=== PATIENT | female | born 1995 | race Caucasian/White ===

== ENCOUNTER 2021-07-15 06:34 | Emergency (ER) | payer BC, OTHER ==
[~2021-07-15] VITALS: Ht 165 cm; Wt 78.0 kg
--- NOTE | 2021-07-15 06:57 | ED Abdominal Pain ---
General Stated Complaint: 14 WKS PREG,CRAMPING,DIZZY,LOW BLOOD PRESSURE Source of Information: Patient Exam Limitations: No Limitations History of Present Illness Date Seen by Provider: Jul 15, 2021 Time Seen by Provider: 06:37 Initial Comments 25yoF that is roughly 14 weeks by 1st trimester ultrasound coming in for lower abdominal cramping that started yesterday at 5pm. See's Dr. Valverde and has had a normal ultrasound so far. Having normal vaginal discharge with her and no bleeding. Pain is a 6/10 cramping feeling that is constant. Has nausea but no vomiting. Tried tylenol last night with little relief. Denies ever having pain like this before. Allergies and Home Medications Allergies Coded Allergies: No Known Drug Allergies (Unverified , 07/15/21) Patient Home Medication List Home Medication List Reviewed: Yes Review of Systems Review of Systems Constitutional: No chills, No fever EENTM: No Blurred Vision Respiratory: Denies Cough, Denies Shortness of Air Cardiovascular: Denies Chest Pain Gastrointestinal: Abdominal Pain; Denies Diarrhea; Nausea; Denies Vomiting Genitourinary: Denies Burning Musculoskeletal: No back pain Skin: no symptoms reported Psychiatric/Neurological: No Symptoms Reported Endocrine: No Symptoms Reported Hematologic/Lymphatic: No Symptoms Reported All Other Systems Reviewed Negative Unless Noted: Yes Past Uentubh-Kuiwwg-Jjxspt Hx Patient Social History Tobacco Use?: No Substance use?: No Past Medical History Surgeries: No Physical Exam Vital Signs Vital Signs - First Documented 07/15/21 06:45 Temp 36.8 Pulse 83 Resp 18 B/P (MAP) 115/69 (84) Pulse Ox 97 O2 Delivery Room Air Capillary Refill : Height/Weight/BMI Height: '" Weight: lbs. oz. kg; BMI Method: General Appearance: WD/WN, no apparent distress HEENT: PERRL/EOMI, normal ENT inspection, pharynx normal Neck: non-tender, full range of motion, supple, normal inspection Respiratory: chest non-tender, lungs clear, normal breath sounds, no respirator y distress, no accessory muscle use Cardiovascular: regular rate, rhythm, no edema, no murmur Gastrointestinal: normal bowel sounds, non tender, soft; No distended, No guarding, No rebound Extremities: normal range of motion, non-tender, normal inspection, no pedal edema, no calf tenderness, normal capillary refill Back: normal inspection, no CVA tenderness, no vertebral tenderness Neurologic/Psychiatric: no motor/sensory deficits, alert, normal mood/affect Skin: normal color, warm/dry Lymphatic: no adenopathy Progress/Results/Core Measures Results/Orders Lab Results Laboratory Tests Test 07/15/21 06:50 07/15/21 07:33 Range/Units Urine Color YELLOW Urine Clarity SL CLOUDY Urine pH 6.0 5-9 Urine Specific [place] 1.025 H 1.016-1.022 Urine Protein NEGATIVE NEGATIVE Urine Glucose (UA) NEGATIVE NEGATIVE Urine Ketones NEGATIVE NEGATIVE Urine Nitrite NEGATIVE NEGATIVE Urine Bilirubin NEGATIVE NEGATIVE Urine Urobilinogen 0.2 < = 1.0 MG/DL Urine Leukocyte Esterase NEGATIVE NEGATIVE Urine RBC (Auto) NEGATIVE NEGATIVE Urine RBC NONE /HPF Urine WBC RARE /HPF Urine Squamous Epithelial Cells 5-10 /HPF Urine Crystals NONE /LPF Urine Bacteria FEW H /HPF Urine Casts NONE /LPF Urine Mucus SMALL H /LPF Urine Culture Indicated NO White Blood Count 8.7 4.3-11.0 10^3/uL Red Blood Count 3.70 L 3.80-5.11 10^6/uL Hemoglobin 11.1 L 11.5-16.0 g/dL Hematocrit 32 L 35-52 % Mean Corpuscular Volume 87 80-99 fL Mean Corpuscular Hemoglobin 30 25-34 pg Mean Corpuscular Hemoglobin Concent 35 32-36 g/dL Red Cell Distribution Width 12.9 10.0-14.5 % Platelet Count 266 130-400 10^3/uL Mean Platelet Volume 9.8 9.0-12.2 fL Immature Granulocyte % (Auto) 1 % Neutrophils (%) (Auto) 65 42-75 % Lymphocytes (%) (Auto) 27 12-44 % Monocytes (%) (Auto) 5 0-12 % Eosinophils (%) (Auto) 2 0-10 % Basophils (%) (Auto) 0 0-10 % Neutrophils # (Auto) 5.6 1.8-7.8 10^3/uL Lymphocytes # (Auto) 2.3 1.0-4.0 10^3/uL Monocytes # (Auto) 0.5 0.0-1.0 10^3/uL Eosinophils # (Auto) 0.2 0.0-0.3 10^3/uL Basophils # (Auto) 0.0 0.0-0.1 10^3/uL Immature Granulocyte # (Auto) 0.0 0.0-0.1 10^3/uL Sodium Level 136 135-145 MMOL/L Potassium Level 3.4 L 3.6-5.0 MMOL/L Chloride Level 105 98-107 MMOL/L Carbon Dioxide Level 20 L 21-32 MMOL/L Anion Gap 11 5-14 MMOL/L Blood Urea Nitrogen 6 L 7-18 MG/DL Creatinine 0.65 0.60-1.30 MG/DL Estimat Glomerular Filtration Rate 113 BUN/Creatinine Ratio 9 Glucose Level 77 70-105 MG/DL Calcium Level 8.6 8.5-10.1 MG/DL Corrected Calcium 8.9 8.5-10.1 MG/DL Total Bilirubin 0.3 0.1-1.0 MG/DL Aspartate Amino Transf (AST/SGOT) 12 5-34 U/L Alanine Aminotransferase (ALT/SGPT) 10 0-55 U/L Alkaline Phosphatase 49 40-136 U/L Total Protein 6.3 L 6.4-8.2 GM/DL Albumin 3.6 3.2-4.5 GM/DL Lipase 18 8-78 U/L My Orders Orders - DARON MAIN MD Cbc With Automated Diff (07/15/21 07:09) Comprehensive Metabolic Panel (07/15/21 07:09) Lipase (07/15/21 07:09) Ua Culture If Indicated (07/15/21 07:09) Abo Rh Type (07/15/21 07:09) Ed Iv/Invasive Line Start (07/15/21 07:09) Lactated Ringers (Lr 1000 Ml Iv Solution (07/15/21 07:15) Acetaminophen Tablet (Tylenol Tablet) (07/15/21 07:15) Medications Given in ED Current Medications Medications Dose Ordered Sig/Stephen Route Start Time Stop Time Status Last Admin Dose Admin Acetaminophen 1,000 mg ONCE ONCE PO 07/15/21 07:15 07/15/21 07:16 DC 07/15/21 07:25 1,000 MG Lactated Ringer's 1,000 ml @ 0 mls/hr Q0M ONCE IV 07/15/21 07:15 07/15/21 07:16 DC 07/15/21 07:31 1,000 MLS/HR Vital Signs/I&O 07/15/21 06:45 Temp 36.8 Pulse 83 Resp 18 B/P (MAP) 115/69 (84) Pulse Ox 97 O2 Delivery Room Air Progress Progress Note : Progress Note 25-year-old female with above history coming in due to lower abdominal cramping in the setting of being roughly 14 weeks . ABCs were intact and vitals were stable on presentation. Physical exam with some mild lower abdominal tenderness but no signs of peritonitis. An IV was placed and basic labs were obtained including LFTs and a urinalysis. She was given IV fluids and Tylenol for the uterine cramping. No vaginal bleeding at this time so less likely miscarriage but still on the differential. I personally did a [id number] ultrasound on the patient and the heart rate is one fifty with significant amount of movement showing still intrauterine . Basic labs reassuring, potassium slightly low so will recommend some supplementation at home with foods. Urinalysis with bacteria, and given she is we will treat this especially given she is having some mild dysuria at times. This could be the cause of her symptoms. Symptoms mildly improved after fluids and Tylenol. We will have her follow-up with her OB as soon as possible. I believe she is stable for discharge with outpatient follow-up. She was sent home with strict return precautions. Departure Impression Primary Impression: UTI (urinary tract infection) during Qualified Codes: O23.41 - Unspecified infection of urinary tract in , first trimester Additional Impression: Abdominal cramping Disposition: 01 HOME, SELF-CARE Condition: Stable Departure-Patient Inst. Decision time for Depature: 08:24 Referrals: DONIS CARDOZO DO (PCP/Family) Primary Care Physician Patient Instructions: Hypokalemia (DC), Urinary Tract Infections in Add. Discharge Instructions: Do not assess small urinary tract infection which during can cause more cramping and discomfort. Will take an antibiotic for the next week twice a day. Take Tylenol for the cramping with as milligrams every 6 hours. Drink plenty of fluids. Your potassium was just slightly low, and try to eat potassium rich foods such as potatoes, bananas, nuts, or any other thing that you can google. Please follow-up with your OB within the next couple days especially if you are not improving. Please call your doctor especially if you begin having any vaginal bleeding. You can take doxylamine over the counter for nausea during . You should also buy some vitamin B6 to take at the same time as this can help. Scripts Nitrofurantoin Monohyd/M-Cryst (Macrobid 100 mg Capsule) 100 Mg Capsule 1 TAB PO BID for 7 Days, #14 CAP Prov: DARON MAIN MD 07/15/21 Work/School Note: Work Release Form Date Seen in the Emergency Department: Jul 15, 2021 Return to Work: Jul 16, 2021 Restrictions: No Restrictions DARON MAIN MD Jul 15, 2021 06:57
[2021-07-15] MEDS ORDERED: LACTATED RINGERS 1,000 ML IV ONE (07:15)
[2021-07-15] MEDS ORDERED: ACETAMINOPHEN 500 MG TAB (TYLENOL) PO ONE (07:15)
[2021-07-15 07:17] LABS: BILIRUBIN,URINE NEGATIVE (NEGATIVE); CLARITY,URINE SL CLOUDY; COLOR,URINE YELLOW; GLUCOSE, URINE (UA) NEGATIVE (NEGATIVE); KETONES,URINE NEGATIVE (NEGATIVE); LEUKOCYTE ESTERASE ,URINE NEGATIVE (NEGATIVE); NITRITE,URINE NEGATIVE (NEGATIVE); PROTEIN,URINE NEGATIVE (NEGATIVE)
[2021-07-15 07:37] LABS: BACTERIA,URINE FEW /HPF; WBC,URINE RARE /HPF
[2021-07-15 07:47] LABS: BASOPHILS % (AUTO) 0 % (0-10); EOSINOPHILS # (AUTO) 0.2 10^3/uL (0.0-0.3); EOSINOPHILS % (AUTO) 2 % (0-10); HEMATOCRIT 32 % (35-52); HEMOGLOBIN 11.1 g/dL (11.5-16.0); LYMPHOCYTES # (AUTO) 2.3 10^3/uL (1.0-4.0); LYMPHOCYTES % (AUTO) 27 % (12-44); MEAN CORPUSCULAR HEMOGLOBIN 30 pg (25-34); MEAN CORPUSCULAR HGB CONC 35 g/dL (32-36); MEAN CORPUSCULAR VOLUME 87 fL (80-99); MEAN PLATELET VOLUME 9.8 fL (9.0-12.2); MONOCYTES # (AUTO) 0.5 10^3/uL (0.0-1.0); MONOCYTES % (AUTO) 5 % (0-12); NEUTROPHILS # (AUTO) 5.6 10^3/uL (1.8-7.8); NEUTROPHILS % (AUTO) 65 % (42-75); PLATELET COUNT 266 10^3/uL (130-400); WHITE BLOOD COUNT 8.7 10^3/uL (4.3-11.0)
[2021-07-15 08:03] LABS: ALBUMIN 3.6 GM/DL (3.2-4.5); POTASSIUM 3.4 MMOL/L (3.6-5.0)
[2021-07-15 08:04] LABS: CALCIUM 8.6 MG/DL (8.5-10.1)
[2021-07-15 08:05] LABS: TOTAL PROTEIN 6.3 GM/DL (6.4-8.2)
[2021-07-15 08:07] LABS: BILIRUBIN,TOTAL 0.3 MG/DL (0.1-1.0)
[2021-07-15 08:09] LABS: CREATININE SERUM 0.65 MG/DL (0.60-1.30)
[2021-07-15] MEDS ORDERED: NITR-65 PO (08:32)
[2021-07-15 09:15] VITALS: BP 106/62
== END 2021-07-15 09:15 | disposition home or self-care (01) ==
LOC: ER 06:41
DX: O23.42 Unspecified infection of urinary tract in pregnancy, second trimester (principal); N39.0 Urinary tract infection, site not specified; Z3A.14 14 weeks gestation of pregnancy
CPT/HCPCS: 36415; 80053; 81000; 83690; 85025; 86900; 86901

== ENCOUNTER → 2021-08-21 | Outpatient (CLI) | payer BC ==
[~2021-08-21] MED LIST: NITR-65 PO
--- NOTE | 2021-08-21 16:02 | Diagnostic Imaging Report ---
INDICATION: survey. TECHNIQUE: Multiple real-time grayscale images were obtained over the gravid uterus. COMPARISON: None FINDINGS: There is a single live fetus in a cephalic presentation. heart rate was recorded at 144 bpm. Placenta is posterior. Placenta appears to cover the internal cervical os consistent with previa. Amniotic fluid volume is normal. Cervical length is 3.2 cm. survey shows kidneys, bladder and stomach to be unremarkable. brain is unremarkable. There is a 4-chamber heart. There is a 3-vessel cord with normal insertion. spine is unremarkable. Biometrical measurements are as follows: Biparietal 4.78 cm, age 20 weeks 4 days. Head circumference 17.82 cm, age 20 weeks 2 days. Abdominal circumference 15.13 cm, age 20 weeks 3 days. Femur length 3.52 cm, age 21 weeks 1 days. Sonographic estimate age: 20 weeks 5 days. Sonographic estimated date of delivery: 01/03/2022. Estimated Weight: 368 gm (+/- 54 gm). LMP percentile: 92%. heart rate: 144 beats per minute. number: 1 of 1. IMPRESSION: 1. Single live IUP 20 weeks 5 days gestational age. Estimated date of confinement sonographically is 01/03/2022. 2. Findings consistent with placenta previa. Follow-up is recommended. Dictated by: Dictated on workstation # [id number]
== END ==
LOC: RAD 15:15
PROVIDERS: ATTEND Obstetrics & Gynecology
DX: Z34.02 Encounter for supervision of normal first pregnancy, second trimester (principal); Z3A.20 20 weeks gestation of pregnancy
CPT/HCPCS: 76805

== ENCOUNTER 2022-01-18 19:15 | Inpatient (IN) | payer BC ==
[~2022-01-18] VITALS: Ht 165.1 cm; Wt 99.7 kg
[2022-01-18 19:23] VITALS: BP 109/64
[2022-01-18] MEDS ORDERED: LIDOCAINE/EPI 2% 1:200,00 (XYLOCAINE) 10 ML VIAL INJ PRN (20:30)
[2022-01-18] MEDS ORDERED: TERBUTALINE INJ 1 MG/ML (BRETHINE) AMP SC PRN (20:30)
[2022-01-18] MEDS ORDERED: LACTATED RINGERS 1,000 ML IV SCH (20:30)
[2022-01-18 20:38] LABS: BILIRUBIN,URINE NEGATIVE (NEGATIVE); CLARITY,URINE CLEAR; COLOR,URINE YELLOW; GLUCOSE, URINE (UA) NEGATIVE (NEGATIVE); KETONES,URINE NEGATIVE (NEGATIVE); LEUKOCYTE ESTERASE ,URINE TRACE (NEGATIVE); NITRITE,URINE NEGATIVE (NEGATIVE); PROTEIN,URINE NEGATIVE (NEGATIVE)
[2022-01-18 20:39] LABS: BASOPHILS % (AUTO) 0 % (0-10); EOSINOPHILS # (AUTO) 0.1 10^3/uL (0.0-0.3); EOSINOPHILS % (AUTO) 1 % (0-10); HEMATOCRIT 33 % (35-52); HEMOGLOBIN 11.2 g/dL (11.5-16.0); LYMPHOCYTES # (AUTO) 2.2 10^3/uL (1.0-4.0); LYMPHOCYTES % (AUTO) 19 % (12-44); MEAN CORPUSCULAR HEMOGLOBIN 30 pg (25-34); MEAN CORPUSCULAR HGB CONC 34 g/dL (32-36); MEAN CORPUSCULAR VOLUME 88 fL (80-99); MEAN PLATELET VOLUME 11.3 fL (9.0-12.2); MONOCYTES # (AUTO) 0.8 10^3/uL (0.0-1.0); MONOCYTES % (AUTO) 7 % (0-12); NEUTROPHILS # (AUTO) 7.9 10^3/uL (1.8-7.8); NEUTROPHILS % (AUTO) 71 % (42-75); PLATELET COUNT 239 10^3/uL (130-400); WHITE BLOOD COUNT 11.1 10^3/uL (4.3-11.0)
[2022-01-18] MEDS ORDERED: D5 LR IV SOLUTION 1,000 ML IV ONE (20:44)
[2022-01-18] MEDS: D5 LR IV SOLUTION 1,000 ML IV SCH (20:50)
[2022-01-18 20:53] VITALS: BP 118/75
[2022-01-18 20:54] LABS: BACTERIA,URINE MODERATE /HPF; SQUAMOUS EPITHELIAL CELL,UR 0-2 /HPF; WBC,URINE 0-2 /HPF; YEAST,URINE FEW /HPF
[2022-01-18 21:42] VITALS: BP 109/64
[2022-01-18 22:10] VITALS: BP 99/58
[2022-01-18 23:24] VITALS: BP 98/55
[2022-01-19] VITALS (97 sets, daily range): BP systolic 88–164; BP diastolic 9–87
[2022-01-19] MEDS: D5 LR IV SOLUTION 1,000 ML IV SCH ×3 (04:28→18:15)
[2022-01-19] MEDS: CATHETER FLUSH 10 ML SYR IV SCH ×2 (04:32→14:00)
--- NOTE | 2022-01-19 07:23 | History & Physical-OB ---
OB - Chief Complaint & HPI Date/Time Date of Admission: Date of Admission: Jan 18, 2022 at 19:15 Date seen by a Provider: Jan 19, 2022 Time Seen by a Provider: 07:00 Chief Complaint/History OB-Reason for Admission/Chief: Induction of Labor Hx : 1 Hx Para: 0 Expected Date of Delivery: Jan 08, 2022 Gestational Age in Weeks: 41 Gestational Age in Days: 3 Indication for induction: post dates Admission Nurse Assessment Rev: Yes History of Labs a pos Antibody neg RI RPR NR HBsAg NR HIV NR GC neg GBS neg Allergies and Home Medications Allergies Coded Allergies: No Known Drug Allergies (Unverified , 07/15/21) Patient Home Medication List Home Medication List Reviewed: Yes Discontinued Medications Nitrofurantoin Monohyd/M-Cryst (Macrobid 100 mg Capsule) 100 Mg Capsule, 1 TAB PO BID Discontinued Reason: No Longer Taking Prescribed by: DARON MAIN on 07/15/21 0832 Last Action: Discontinued OB - History Hx of Present Care: Yes Ultrasounds: Normal mid trimester US Obstetrical Complications: None Medical Complications: None Patient Past Medical History n/a Immunizations Influenza Vaccine Up-to-Date: Yes; Up-to-Date First/Initial COVID19 Vaccine: 2- Second COVID19 Vaccination: 3- OB - Admission Exam Physical Exam Vitals: Vital Signs 01/18/22 01/19/22 01/19/22 21:42 05:10 06:11 Temp 36.4 Pulse 66 Resp 18 B/P (MAP) 118/78 (91) Pulse Ox 98 O2 Delivery Room Air HEENT: NCAT Heart: Rhythm Normal Lungs: Clear Abdomen: Gravid Extremities: Normal Reflexes: Normal Cervical Dilatation: Fingertip Effacement: 75% Station: -1 Heart Rate: 130's Accelerations: Accelerations Present Decelerations: No Decelerations Short Term Variability: Present Soap Mixer Variability: Average (6-25) Contractions on Admission: >10 Minutes Apart Intensity: Mild Labs Laboratory Tests Test 01/18/22 19:20 01/18/22 19:45 Range/Units Urine Color YELLOW Urine Clarity CLEAR Urine pH 6.0 5-9 Urine Specific [place] 1.025 H 1.016-1.022 Urine Protein NEGATIVE NEGATIVE Urine Glucose (UA) NEGATIVE NEGATIVE Urine Ketones NEGATIVE NEGATIVE Urine Nitrite NEGATIVE NEGATIVE Urine Bilirubin NEGATIVE NEGATIVE Urine Urobilinogen 0.2 < = 1.0 MG/DL Urine Leukocyte Esterase TRACE H NEGATIVE Urine RBC (Auto) NEGATIVE NEGATIVE Urine RBC NONE /HPF Urine WBC 0-2 /HPF Urine Squamous Epithelial Cells 0-2 /HPF Urine Renal Epithelial Cells NONE /HPF Urine Crystals NONE /LPF Urine Bacteria MODERATE H /HPF Urine Casts NONE /LPF Urine Mucus SMALL H /LPF Urine Yeast FEW H /HPF Urine Culture Indicated YES White Blood Count 11.1 H 4.3-11.0 10^3/uL Red Blood Count 3.73 L 3.80-5.11 10^6/uL Hemoglobin 11.2 L 11.5-16.0 g/dL Hematocrit 33 L 35-52 % Mean Corpuscular Volume 88 80-99 fL Mean Corpuscular Hemoglobin 30 25-34 pg Mean Corpuscular Hemoglobin Concent 34 32-36 g/dL Red Cell Distribution Width 13.8 10.0-14.5 % Platelet Count 239 130-400 10^3/uL Mean Platelet Volume 11.3 9.0-12.2 fL Immature Granulocyte % (Auto) 1 % Neutrophils (%) (Auto) 71 42-75 % Lymphocytes (%) (Auto) 19 12-44 % Monocytes (%) (Auto) 7 0-12 % Eosinophils (%) (Auto) 1 0-10 % Basophils (%) (Auto) 0 0-10 % Neutrophils # (Auto) 7.9 H 1.8-7.8 10^3/uL Lymphocytes # (Auto) 2.2 1.0-4.0 10^3/uL Monocytes # (Auto) 0.8 0.0-1.0 10^3/uL Eosinophils # (Auto) 0.1 0.0-0.3 10^3/uL Basophils # (Auto) 0.0 0.0-0.1 10^3/uL Immature Granulocyte # (Auto) 0.1 0.0-0.1 10^3/uL OB - Assessment/Plan/Diagnosis Assessment Assessment: section Admission Dx 26 yo @ 41 weeks IOL Post dates GBS neg Admission Status: Inpatient Order (span 2 midnights) Reason for Inpatient Admission: 41 week IOL Plan Plan: Induction Induction Method: per Misoprostol Protocol MOOK ALVAREZ DO Jan 19, 2022 07:23
[2022-01-19] MEDS ORDERED: OXYTOCIN PRE-MIX DRIP 500 ML IV SCH (09:15)
[2022-01-19] MEDS ORDERED: fentaNYL 2 mcg/ml BUPIVA 0.125 100 ML ONE (10:16)
[2022-01-19] MEDS ORDERED: fentaNYL INJ 100 MCG/2 ML AMP ONE (10:52)
[2022-01-19] MEDS ORDERED: BUPIVACAINE 0.25% 30 ML (SENSORCAINE) VIAL ONE (10:52)
[2022-01-19] MEDS: EPIDURAL (fentaNYL 2 MCG/ML BUPIVA 0.125%)100 ML BAG EPI PRN ×2 (11:20→18:44)
[2022-01-19] MEDS ORDERED: LACTATED RINGERS 1,000 ML IV SCH (11:45)
[2022-01-19] MEDS ORDERED: METOCLOPRAMIDE INJ 10 MG/2 ML (REGLAN) IV PRN (11:45)
[2022-01-19] MEDS ORDERED: ONDANSETRON 4 MG/2 ML (SDV) Z0FRAN IV PRN (11:45)
[2022-01-19] MEDS ORDERED: diphenhydrAMINE 50 MG/ML INJ (BENADRYL) IV PRN (11:45)
[2022-01-19] MEDS ORDERED: NALOXONE 0.4 MG/ML 1 ML (NARCAN) VIAL IV PRN ×2 (11:45)
[2022-01-19] MEDS ORDERED: LIDOCAINE PF 2% 5 ML (XYLOCAINE) VIAL ONE (12:57)
[2022-01-19] MEDS ORDERED: PROMETHAZINE INJ 25 MG/ML (PHENERGAN) AMP IVP PRN (19:45)
[2022-01-19] MEDS ORDERED: PROMETHAZINE INJ 25 MG/ML (PHENERGAN) AMP ONE (20:23)
[2022-01-20] VITALS (12 sets, daily range): BP systolic 100–180; BP diastolic 54–78
[2022-01-20] MEDS ORDERED: METHYLERGONOVINE 0.2 MG/ML (METHERGINE) AMP ONE (00:06)
[2022-01-20] MEDS ORDERED: HYDROcodone/APAP 5 MG/325 MG (LORTAB) TAB PO PRN (00:15)
[2022-01-20] MEDS ORDERED: BENZOCAINE/MENTHOL (DERMOPLAST) 56 ML CAN TP PRN (00:15)
[2022-01-20] MEDS ORDERED: DIBUCAINE 1% OINTMENT 30 GM TUBE TOP PRN (00:15)
[2022-01-20] MEDS ORDERED: TETANUS,DIPTH,PERTUSS P/F (BOOSTRIX) 0.5 ML VIAL IM ONE (00:15)
[2022-01-20] MEDS ORDERED: WITCH HAZEL(TUCKS) 40 EA JAR TOP PRN (00:15)
[2022-01-20] MEDS ORDERED: NALOXONE 0.4 MG/ML 1 ML (NARCAN) VIAL IV PRN (00:15)
[2022-01-20] MEDS ORDERED: MEASLES,MUMPS,RUBELLA 1 EA INJ SQ ONE (00:15)
[2022-01-20] MEDS ORDERED: METHYLERGONOVINE 0.2 MG/ML (METHERGINE) AMP IM ONE (00:15)
--- NOTE | 2022-01-20 00:17 | OB Labor & Delivery Record ---
L&D History Date of Service Date of Service: Jan 19, 2022 History Expected Date of Delivery: Jan 08, 2022 Gestational Age in Weeks: 41 Hx : 1 Hx Para: 0 Complications Events: Routine care Operative Indications (Cesarea: N/A-Vaginal Delivery Intrapartal Events: None L&D Stage1 Stage One Onset of Labor - Date: Jan 19, 2022 Monitors and Tracing Monitor Mode: External Heart Rate: 130 Station: 0 Vital Signs VS - Last 72 Hours, by Label 01/18/22 01/18/22 01/18/22 01/18/22 19:23 20:53 21:42 22:10 Temp 36.7 36.7 36.7 36.2 Pulse 98 84 98 83 Resp 18 18 18 18 B/P (MAP) 109/64 (79) 118/75 (89) 99/58 (72) Pulse Ox 98 98 O2 Delivery Room Air Room Air Room Air Room Air 01/18/22 01/19/22 01/19/22 01/19/22 23:24 00:11 01:10 02:11 Temp 36.3 Pulse 76 75 62 83 Resp 18 18 18 18 B/P (MAP) 98/55 (69) 95/55 (68) 91/50 (64) 99/55 (70) O2 Delivery Room Air Room Air Room Air 01/19/22 01/19/22 01/19/22 01/19/22 03:10 04:11 05:10 06:11 Temp 36.4 Pulse 67 64 70 66 Resp 18 18 18 18 B/P (MAP) 96/58 (71) 101/65 (77) 115/75 (88) 118/78 (91) O2 Delivery Room Air Room Air Room Air Room Air 01/19/22 01/19/22 01/19/22 01/19/22 07:30 08:00 08:30 09:30 Temp 36.7 36.4 Pulse 61 67 71 61 Resp 18 18 18 18 B/P (MAP) 120/73 (89) 119/76 (90) 122/79 (93) 120/70 (87) O2 Delivery Room Air Room Air Room Air Room Air 01/19/22 01/19/22 01/19/22 01/19/22 10:00 10:15 10:30 10:59 Pulse 71 63 65 71 Resp 18 18 18 18 B/P (MAP) 132/78 (96) 128/78 (95) 131/87 (102) 125/74 (91) Pulse Ox 100 O2 Delivery Room Air Room Air Room Air Room Air 01/19/22 01/19/22 01/19/22 01/19/22 11:03 11:06 11:09 11:12 Pulse 67 64 68 67 Resp 18 18 18 18 B/P (MAP) 116/70 (85) 120/73 (89) 124/68 (86) 124/73 (90) Pulse Ox 100 100 100 100 O2 Delivery Room Air Room Air Room Air Room Air 01/19/22 01/19/22 01/19/22 01/19/22 11:15 11:18 11:21 11:24 Pulse 69 77 71 64 Resp 18 18 18 18 B/P (MAP) 128/76 (93) 131/77 (95) 123/65 (84) 120/68 (85) Pulse Ox 100 100 100 100 O2 Delivery Room Air Room Air Room Air Room Air 01/19/22 01/19/22 01/19/22 01/19/22 11:27 11:30 11:33 11:36 Pulse 67 68 62 66 Resp 18 18 18 18 B/P (MAP) 119/70 (86) 120/71 (87) 123/71 (88) 128/77 (94) Pulse Ox 100 98 98 98 O2 Delivery Room Air Room Air Room Air Room Air 01/19/22 01/19/22 01/19/22 01/19/22 11:39 11:42 11:45 11:48 Pulse 73 64 65 63 Resp 18 18 18 18 B/P (MAP) 127/81 (96) 131/80 (97) 126/74 (91) 125/75 (92) Pulse Ox 100 100 99 100 O2 Delivery Room Air Room Air Room Air Room Air 01/19/22 01/19/22 01/19/22 01/19/22 11:51 12:00 12:15 12:30 Temp 36.5 Pulse 64 74 60 65 Resp 18 18 18 18 B/P (MAP) 125/68 (87) 133/86 (102) 129/82 (98) 130/79 (96) Pulse Ox 100 100 99 100 O2 Delivery Room Air Room Air Room Air Room Air 01/19/22 01/19/22 01/19/22 01/19/22 12:45 12:55 13:08 13:11 Pulse 69 67 87 74 Resp 18 18 18 18 B/P (MAP) 131/81 (98) 125/78 (94) 164/86 (112) 138/66 (90) Pulse Ox 100 100 100 100 O2 Delivery Room Air Room Air Room Air Room Air 01/19/22 01/19/22 01/19/22 01/19/22 13:14 13:21 13:24 13:27 Pulse 66 80 81 70 Resp 18 18 18 18 B/P (MAP) 144/64 (90) 112/78 (89) 145/70 (95) 130/67 (88) Pulse Ox 100 100 99 100 O2 Delivery Room Air Room Air Room Air Room Air 01/19/22 01/19/22 01/19/22 01/19/22 13:30 13:33 13:36 13:40 Pulse 76 69 76 70 Resp 18 18 18 18 B/P (MAP) 151/77 (101) 147/81 (103) 142/65 (90) 151/87 (108) Pulse Ox 100 100 100 100 O2 Delivery Room Air Room Air Room Air Room Air 01/19/22 01/19/22 01/19/22 01/19/22 13:43 13:46 13:49 13:51 Pulse 71 73 69 78 Resp 18 18 18 18 B/P (MAP) 125/69 (87) 121/62 (81) 115/58 (77) 116/55 (75) Pulse Ox 100 100 100 100 O2 Delivery Room Air Room Air Room Air Room Air 01/19/22 01/19/22 01/19/22 01/19/22 13:54 13:57 14:00 14:03 Pulse 76 74 72 77 Resp 18 18 18 18 B/P (MAP) 112/59 (76) 111/58 (75) 108/54 (72) 103/57 (72) Pulse Ox 100 99 99 99 O2 Delivery Room Air Room Air Room Air Room Air 01/19/22 01/19/22 01/19/22 01/19/22 14:06 14:09 14:11 14:15 Pulse 67 68 67 60 Resp 18 18 18 18 B/P (MAP) 103/57 (72) 110/59 (76) 109/60 (76) 113/59 (77) Pulse Ox 99 97 97 98 O2 Delivery Room Air Room Air Room Air Room Air 01/19/22 01/19/22 01/19/22 01/19/22 14:45 15:00 15:15 15:45 Pulse 76 64 66 67 Resp 18 18 18 B/P (MAP) 95/52 (66) 88/53 (65) 104/51 (68) 107/67 (80) Pulse Ox 100 100 100 O2 Delivery Room Air Room Air Room Air 01/19/22 01/19/22 01/19/22 01/19/22 16:00 16:15 16:30 16:45 Temp 36.6 Pulse 67 71 73 74 Resp 18 18 18 18 B/P (MAP) 107/67 (80) 111/61 (78) 112/64 (80) 113/68 (83) Pulse Ox 100 O2 Delivery Room Air Room Air Room Air Room Air 01/19/22 01/19/22 01/19/22 01/19/22 17:00 17:15 17:30 17:45 Pulse 83 66 77 72 Resp 18 18 18 18 B/P (MAP) 122/76 (91) 111/63 (79) 115/72 (86) 99/63 (75) O2 Delivery Room Air Room Air Room Air Room Air 01/19/22 01/19/22 01/19/22 01/19/22 18:00 18:15 18:30 18:45 Pulse 74 71 74 72 Resp 18 18 18 18 B/P (MAP) 119/74 (89) 119/71 (87) 106/57 (73) 114/61 (78) O2 Delivery Room Air Room Air Room Air Room Air 01/19/22 01/19/22 01/19/22 01/19/22 19:00 19:15 19:30 19:45 Temp 36.6 Pulse 69 66 71 67 Resp 18 18 18 18 B/P (MAP) 122/58 (79) 111/64 (80) 127/75 (92) 116/69 (85) O2 Delivery Room Air Room Air Room Air Room Air 01/19/22 01/19/22 01/19/22 01/19/22 20:00 20:15 20:30 20:45 Pulse 74 68 73 76 Resp 18 18 18 18 B/P (MAP) 116/72 (87) 101/55 (70) 103/55 (71) 105/56 (72) O2 Delivery Room Air Room Air Room Air Room Air 01/19/22 01/19/22 01/19/22 01/19/22 21:00 21:15 21:30 21:45 Temp 36.7 Pulse 75 71 93 72 Resp 18 18 18 18 B/P (MAP) 103/58 (73) 104/58 (73) 100/9 (39) 123/75 (91) O2 Delivery Room Air Room Air Room Air Room Air 01/19/22 01/19/22 22:00 22:15 Pulse 88 86 Resp 18 18 B/P (MAP) 125/75 (92) 114/58 (76) O2 Delivery Room Air Room Air Rupture of Membranes Spontaneous Ruture of Membrane: No Amniotic Membrane Rupture Time: 0711 Amniotic Membrane Fluid Desc.: Clear Vaginal Bleeding Description: Normal Show Induction/Anesthesia Epidural Cath Placement - Time: 1330 Progress/Notes Patient admitted last night for post dates cervical ripening, arom performed this AM followed by pitocin augmentation and an epidural is placed with adequate pain control. She slowly progressed through the day to complete and +2 station. L&D Stage2 Stage Two Stage II Date: Jan 19, 2022 Monitors and Tracing Monitor Mode: External Heart Rate: 130 Monitor Accelerations: Uniform Monitor Decelerations: Variable Senior Living Variability: Average (6-10) Short Term Variability: Present Position: Right Occiput Anterior Presentation: Vertex Signs of Distress by FHT Signs of Distress Due to ineffective maternal pushing and persistent tachycardia in the 180s I briefly discussed with patient Kiwi vacuum extraction. Cup is placed on flexion point, and 550 mmHg is applied using handpiece, with next maternal push extension of the head over RML is exaggerated using the vacuum which facilatates delivery of head and vacuum is released. Cord Descript/Complications Cord Vessel Description: 3 Vessels Delivery Type Infant Delivery Method: Low Vacuum Extraction Anterior Shoulder: Left Episiotomy/Perineal Laceration Laceraction(s)/Extensions: Yes Episiotomy Description: Right Mediolateral (extension to left vaginal sulcal laceration) Degree (describe repair) repaired using 3-0 vicryl rapide and 2-0 vicryl suture in usual fashion Condition of Infant Delivery 1 minute Comment: 8 5 minute Comment: 9 Notes Live female weight 8lbs 14 oz Condition of Condition of : Living Exam: No Observed Abnormalities Resuscitation Resuscitation: N/A - Spontaneous Resp L&D Stage3 Stage Three Stage III Date: Jan 20, 2022 Pictocin Pitocin Administration mu/min: 16 Pitocin ml/hr: 16 Pitocin Administration Comment: 30 mu wide open after delivery of placenta Placenta Delivery Placenta Delivery: Spontaneous Delivery Summary Summary Estimated blood loss (mL): 400 Attending at delivery: Mook Alvarez DO Condition of Delivery Examined: Cervix Examined, Uterus Explored Post Hemorrhage: No Condition of Mother stable Condition of Infant (s) stable MOOK ALVAREZ DO Jan 20, 2022 00:17
[2022-01-20] MEDS: OXYTOCIN PRE-MIX DRIP 500 ML IV SCH ×2 (00:24)
[2022-01-20] MEDS ORDERED: IBUPROFEN 600 MG (MOTRIN) TAB PO ONE (02:56)
[2022-01-20] MEDS: CATHETER FLUSH 10 ML SYR IV SCH ×6 (03:00→20:07)
[2022-01-20] MEDS: IBUPROFEN 600 MG (MOTRIN) TAB PO SCH ×4 (03:00→20:59)
[2022-01-20] MEDS: D5 LR IV SOLUTION 1,000 ML IV SCH ×2 (05:33→20:07)
--- NOTE | 2022-01-20 08:47 | Discharge Inst-Women's Service ---
Discharge Inst-Women's Serv Depart Medication/Instructions New, Converted or Re-Newed RX: Transmitted to Pharmacy Final Diagnosis PPD 1 NVD Problems Reviewed?: Yes Consults/Follow Up Additional Follow Up: Yes Orders/Referrals Dr. Alvarez in 6 weeks Activity Activity: Activity as Tolerated Driving Instructions: No Driving for 1 Week NO SMOKING: NO SMOKING Nothing Inside Vagina: No Douching, No [place], No Tampons Diet Discharge Diet: No Restrictions Symptoms to Report to : Bleeding Excessive, Pain Increased, Fever Over 101 Degrees F, Vaginal Bleeding Increase, Questions/Concerns For Any Problems or Questions: Contact Your Physician MOOK ALVAREZ DO Jan 20, 2022 08:47
[2022-01-20] MEDS ORDERED: ACHD5005 PO (08:49)
[2022-01-20] MEDS ORDERED: DIBU30OI TOP (08:49)
[2022-01-20] MEDS ORDERED: IBUP-844 PO (08:49)
[2022-01-20] MEDS ORDERED: BENZ78AE5 TP (08:49)
[2022-01-20] MEDS ORDERED: DOCU100C37 PO (08:49)
[2022-01-20] MEDS ORDERED: FERR325T24 PO (08:49)
[2022-01-20] MEDS: DOCUSATE SODIUM 100 MG (COLACE) CAP PO SCH ×2 (09:25→20:58)
[2022-01-20] MEDS: FERROUS SULF 325 MG (IRON) TAB PO SCH (09:26)
--- NOTE | 2022-01-20 09:37 | Anesthesia-Regional Post-Op ---
Regional Patient Condition Mental Status: Alert, Oriented x3 Circulation: Same as Pre-Op Headache: Absent Sensation: Full Recovery Motor Block: Absent Post Op Complications Complications None Follow Up Care/Instructions Patient Instructions None needed. Anesthesia/Patient Condition Patient is doing well, no complaints, stable vital signs, no apparent adverse anesthesia problems. No complications reported per nursing. SANTANA ROGER CRNA Jan 20, 2022 09:37
[2022-01-21 00:08] VITALS: BP 108/56
[2022-01-21] MEDS: IBUPROFEN 600 MG (MOTRIN) TAB PO SCH ×2 (03:10→10:52)
[2022-01-21] MEDS: D5 LR IV SOLUTION 1,000 ML IV SCH ×3 (05:41→07:00)
[2022-01-21] MEDS: CATHETER FLUSH 10 ML SYR IV SCH ×4 (05:44→07:00)
[2022-01-21 05:51] LABS: BASOPHILS % (AUTO) 0 % (0-10); EOSINOPHILS # (AUTO) 0.2 10^3/uL (0.0-0.3); EOSINOPHILS % (AUTO) 2 % (0-10); HEMATOCRIT 25 % (35-52); HEMOGLOBIN 8.1 g/dL (11.5-16.0); LYMPHOCYTES # (AUTO) 2.1 10^3/uL (1.0-4.0); LYMPHOCYTES % (AUTO) 20 % (12-44); MEAN CORPUSCULAR HEMOGLOBIN 30 pg (25-34); MEAN CORPUSCULAR HGB CONC 33 g/dL (32-36); MEAN CORPUSCULAR VOLUME 90 fL (80-99); MEAN PLATELET VOLUME 11.2 fL (9.0-12.2); MONOCYTES # (AUTO) 0.8 10^3/uL (0.0-1.0); MONOCYTES % (AUTO) 7 % (0-12); NEUTROPHILS # (AUTO) 7.5 10^3/uL (1.8-7.8); NEUTROPHILS % (AUTO) 70 % (42-75); PLATELET COUNT 171 10^3/uL (130-400); WHITE BLOOD COUNT 10.7 10^3/uL (4.3-11.0)
--- NOTE | 2022-01-21 08:43 | Postpartum Progress Note ---
Note Note Day # 1 Subjective: Patient is without complaints. Ambulating, voiding. Tolerating a regular diet without nausea or vomiting. Normal lochia. Pain is well controlled with oral pain medications. [ Objective: Physical Exam: General - Alert and oriented, no apparent distress Abdomen - Soft, appropriately tender to palpation, non-distended, fundus firm at umbilicus Extremities - no edema, negative Mason's bilaterally Assessment: PPD 1 VAVD Acute blood loss anemia Plan: Routine care. Encourage breast feeding. Encourage ambulation. Ferrous sulfate supplementation. Plan for discharge today Vitals - Labs Vital Signs - I&O Vital Signs Date Time Temp Pulse Resp B/P (MAP) Pulse Ox O2 Delivery O2 Flow Rate FiO2 01/21/22 00:08 36.2 86 16 108/56 (73) 98 Room Air 01/20/22 20:51 36.2 80 16 119/68 (85) 100 Room Air 01/20/22 15:25 36.2 89 18 115/63 (80) 99 Room Air 01/20/22 12:51 36.2 88 18 124/69 (87) 98 Room Air 01/20/22 09:27 36.3 74 18 100/54 (69) 97 Room Air Labs Laboratory Tests 01/21/22 05:25: White Blood Count 10.7, Red Blood Count 2.72L, Hemoglobin 8.1#L, Hematocrit 25L, Mean Corpuscular Volume 90, Mean Corpuscular Hemoglobin 30, Mean Corpuscular Hemoglobin Concent 33, Red Cell Distribution Width 14.2, Platelet Count 171, Mean Platelet Volume 11.2, Immature Granulocyte % (Auto) 1, Neutrophils (%) (Auto) 70, Lymphocytes (%) (Auto) 20, Monocytes (%) (Auto) 7, Eosinophils (%) (Auto) 2, Basophils (%) (Auto) 0, Neutrophils # (Auto) 7.5, Lymphocytes # (Auto) 2.1, Monocytes # (Auto) 0.8, Eosinophils # (Auto) 0.2, Basophils # (Auto) 0.0, Immature Granulocyte # (Auto) 0.1 Microbiology 01/18/22 Urine Culture - Final, Complete Gram Pos Mixed Bacterial Jessie MOOK ALVAREZ DO Jan 21, 2022 08:43
[2022-01-21] MEDS: FERROUS SULF 325 MG (IRON) TAB PO SCH (10:52)
[2022-01-21] MEDS: DOCUSATE SODIUM 100 MG (COLACE) CAP PO SCH (10:52)
[2022-01-21 10:54] VITALS: BP 118/62
== END 2022-01-21 11:30 | disposition home or self-care (01) | DRG 806 ==
LOC: LDRP 19:15
PROVIDERS: ADMIT Obstetrics & Gynecology; ATTEND Obstetrics & Gynecology
PROC: 10D07Z6 Extraction of Products of Conception, Vacuum, Via Natural or Artificial Opening (ICD-10-PCS; principal; 2022-01-20)
PROC: 0HQ9XZZ Repair Perineum Skin, External Approach (ICD-10-PCS; 2022-01-20)
DX: O48.0 Post-term pregnancy (principal); O71.4 Obstetric high vaginal laceration alone; Z37.0 Single live birth; D62 Acute posthemorrhagic anemia; Z3A.41 41 weeks gestation of pregnancy; O90.81 Anemia of the puerperium
CPT/HCPCS: 36415; 81000; 85025; 86850; 86900; 86901; 87088

== ENCOUNTER → 2022-04-07 | Outpatient (RCR) | payer BC ==
[~2022-04-07] MED LIST changes: +ACHD5005 PO; +BENZ78AE5 TP; +DIBU30OI TOP; +DOCU100C37 PO; +FERR325T24 PO; +IBUP-844 PO
== END | disposition home or self-care (01) ==
PROVIDERS: ATTEND Physical Therapist
DX: R10.2 Pelvic and perineal pain (principal)

== ENCOUNTER 2022-04-21 13:30 | Outpatient (RCR) | payer BC | END 2022-05-07 | disposition home or self-care (01) | PROVIDERS: ATTEND Physical Therapist | DX: R10.2 Pelvic and perineal pain (principal); R32 Unspecified urinary incontinence ==